=== PATIENT | male | born 1945 | race Caucasian/White ===

== ENCOUNTER 2021-04-10 12:50 | Emergency (ER) | payer MEDICARE ==
[2021-04-10] MEDS ORDERED: KETOROLAC 15 MG/ML 1 ML VIAL IVP STA (13:12)
[2021-04-10] MEDS ORDERED: SODIUM CHLORIDE 0.9% 500 ML 500 ML IV STA (13:12)
--- NOTE | 2021-04-10 13:23 | ED ---
General Adult HPI - General Chief complaint: Back Pain/Injury Stated complaint: back/knee pain Source: patient, family (spouse) Mode of arrival: ambulatory Limitations: no limitations - History of Present Illness Initial comments: 76-year-old alert and oriented white male, presents to the emergency room with complaints of left shoulder pain that radiates across his upper back for the past 5 days. He states he's been taking Tylenol with no relief. Today he developed right knee pain with difficulty flexing it. He denies any injuries. 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 There is some swelling that he noted today. Patient denies any fevers, cough or chest pain. He does have a history of coronary artery disease and COPD. He has been on a paleo diet for the past 5 weeks and lost 20 pounds intentionally. The main reason for visit today is upper back pain is worse with palpation or movement and the right knee pain also worse with palpation or flexion. -: days(s) (5) Location: back (Thoracic), left, right (Knee), upper extremity (left Shoulder), lower extremity Radiation: back (Thoracic back) Severity scale (1-10): 6 Consistency: constant Improves with: immobilization, other (Sitting upright) Worsens with: movement (Lying flat) Associated Symptoms: other (Upper back pain with deep breaths) Treatments Prior to Arrival: none (Acetaminophen) - Related Data Previous Rx's Medication Instructions Recorded Ibuprofen [Motrin] 600 mg PO Q8HR PRN #30 tab 04/10/21 Allergies Allergy/AdvReac Type Severity Reaction Status Date / Time No Known Allergies Allergy Verified 04/10/21 12:57 Review of Systems ROS Statement: Those systems with pertinent positive or pertinent negative responses have been documented in the HPI. ROS Other: All systems not noted in ROS Statement are negative. Past Medical History Past Medical History: Asthma, Coronary Artery Disease (CAD), COPD, Hypertension Additional Past Medical History / Comment(s): PVC's, COVID 08/15 History of Any Multi-Drug Resistant Organisms: None Reported Past Surgical History: Hernia Repair, Orthopedic Surgery, Tonsillectomy Additional Past Surgical History / Comment(s): lt knee, pyloric stenosis, vasectomy Past Psychological History: No Psychological Hx Reported Smoking Status: Former smoker Past Alcohol Use History: Rare Past Drug Use History: None Reported General Exam Limitations: no limitations General appearance: alert, in no apparent distress Head exam: Present: atraumatic, normocephalic, normal inspection Eye exam: Present: normal appearance, PERRL, EOMI. Absent: scleral icterus, conjunctival injection, periorbital swelling Pupils: Present: normal accommodation ENT exam: Present: normal exam, normal oropharynx, mucous membranes moist Neck exam: Present: normal inspection, full ROM. Absent: tenderness, meningismus, lymphadenopathy, thyromegaly Respiratory exam: Present: normal lung sounds bilaterally. Absent: respiratory distress, wheezes, rales, rhonchi, stridor, chest wall tenderness, accessory muscle use, decreased breath sounds, prolonged expiratory Cardiovascular Exam: Present: regular rate, normal rhythm, normal heart sounds. Absent: systolic murmur, diastolic murmur, rubs, gallop, clicks GI/Abdominal exam: Present: soft, normal bowel sounds. Absent: distended, tenderness, guarding, rebound, rigid Extremities exam: Present: joint swelling (Right knee) Left Shoulder Exam: Present: tenderness (Left scapula to palpation). Absent: laceration, ecchymosis, deformity, crepitus, dislocation, erythema, tenderness over AC joint Upper Arm exam: Present: normal inspection. Absent: tenderness Elbow exam: Present: normal inspection. Absent: tenderness Forearm Wrist exam: Present: normal inspection. Absent: tenderness Hand Wrist exam: Present: normal inspection. Absent: tenderness Vascular: Present: normal capillary refill. Absent: vascular compromise Right Knee exam: Present: tenderness, swelling, pain/laxity with valgus, pain/laxity with varus, full knee extension. Absent: full ROM, abrasion, laceration, ecchymosis, deformity, dislocation, erythema Lower Leg exam: Present: normal inspection Ankle exam: Present: normal inspection Neurovascular tendon exam: Present: no vascular compromise. Absent: abnormal cap refill, extremity cold to touch, pallor, foot drop Back exam: Present: normal inspection, paraspinal tenderness (Upper thoracic). Absent: CVA tenderness (R), CVA tenderness (L), vertebral tenderness, rash noted Expanded Back exam: Absent: saddle anesthesia Neurological exam: Present: alert, oriented X3, CN II-XII intact Psychiatric exam: Present: normal affect, normal mood Skin exam: Present: warm, dry, intact, normal color. Absent: rash Course Vital Signs 04/10/21 04/10/21 12:51 15:20 Temperature 98.3 F 98.1 F Pulse Rate 87 69 Respiratory 20 16 Rate Blood Pressure 161/88 136/88 O2 Sat by Pulse 99 96 Oximetry EKG Findings - EKG Results: EKG: sinus rhythm (Ventricular rate 71, ND interval 0.186, QRS of 0.90, QTC of 0.402) Medical Decision Making - Medical Decision Making Chest x-ray shows no hilar masses, heart size is normal, no pleural effusions and no compression fractures. X-ray of the right knee shows mild chondr ocalcinosis but no fractures. There is no evidence of any significant joint effusion. CBC is unremarkable with no elevation in white count to indicate infectious process. Electrolytes are within normal limits. EKG shows normal sinus rhythm with no ectopy. I have a low suspicion that this is ACS. Patient has no shortness of breath or cough. Blood glucose is 130 and patient was advised to follow up with his doctor. This is likely arthritic pain as evidenced by chondrocalcinosis of the knee and x-ray. He'll be referred to orthopedics. Case discussed with Dr. Fregoso who is agreeable to this plan of care - Lab Data Result diagrams: 04/10/21 13:23 04/10/21 13:23 Lab Results 04/10/21 04/10/21 04/10/21 Range/Units 13:23 13:23 13:23 WBC 9.6 (3.8-10.6) k/uL RBC 4.33 (4.30-5.90) m/uL Hgb 14.1 (13.0-17.5) gm/dL Hct 41.5 (39.0-53.0) % MCV 95.7 (80.0-100.0) fL MCH 32.5 (25.0-35.0) pg MCHC 33.9 (31.0-37.0) g/dL RDW 13.7 (11.5-15.5) % Plt Count 289 (150-450) k/uL MPV 8.6 Neutrophils % 75 % Lymphocytes % 11 % Monocytes % 10 % Eosinophils % 1 % Basophils % 1 % Neutrophils # 7.2 (1.3-7.7) k/uL Lymphocytes # 1.1 (1.0-4.8) k/uL Monocytes # 0.9 (0-1.0) k/uL Eosinophils # 0.1 (0-0.7) k/uL Basophils # 0.1 (0-0.2) k/uL Sodium 138 (137-145) mmol/L Potassium 4.4 (3.5-5.1) mmol/L Chloride 105 (98-107) mmol/L Carbon Dioxide 25 (22-30) mmol/L Anion Gap 8 mmol/L BUN 22 H (9-20) mg/dL Creatinine 0.68 (0.66-1.25) mg/dL Est GFR (CKD-EPI)AfAm >90 (>60 ml/min/1.73 sqM) Est GFR (CKD-EPI)NonAf >90 (>60 ml/min/1.73 sqM) Glucose 130 H (74-99) mg/dL Plasma Lactic Acid Brad 0.9 (0.7-2.0) mmol/L Calcium 9.6 (8.4-10.2) mg/dL Total Bilirubin 0.5 (0.2-1.3) mg/dL AST 28 (17-59) U/L ALT 27 (4-49) U/L Alkaline Phosphatase 67 (38-126) U/L Total Protein 6.9 (6.3-8.2) g/dL Albumin 4.2 (3.5-5.0) g/dL Lipase 57 (23-300) U/L Disposition Clinical Impression: Chondrocalcinosis Disposition: HOME SELF-CARE Condition: Fair Instructions (If sedation given, give patient instructions): Knee Pain (ED), Shoulder Pain (ED) Additional Instructions: Take Motrin every 8 hours for pain, rest ice and elevate your knee. Follow-up with orthopedics for continuation of care. Return with worsening symptoms. Prescriptions: Ibuprofen [Motrin] 600 mg PO Q8HR PRN #30 tab PRN Reason: Pain Is patient prescribed a controlled substance at d/c from ED?: No Referrals: Saurabh Wheeler MD [Primary Care Provider] - 1-2 days Vidal Dacosta PAC [PHYSICIAN [employer]GER] - 1-2 days
[2021-04-10 13:40] LABS: Basophils # (A) 0.1 k/uL (0-0.2); Basophils % (A) 1 %; Eosinophils # (A) 0.1 k/uL (0-0.7); Eosinophils % (A) 1 %; HCT 41.5 % (39.0-53.0); HGB 14.1 gm/dL (13.0-17.5); Lymphocytes # (A) 1.1 k/uL (1.0-4.8); Lymphocytes % (A) 11 %; MCH 32.5 pg (25.0-35.0); MCHC 33.9 g/dL (31.0-37.0); MCV 95.7 fL (80.0-100.0); Mean Platelet Volume 8.6; Monocytes # (A) 0.9 k/uL (0-1.0); Monocytes % (A) 10 %; Neutrophils # (A) 7.2 k/uL (1.3-7.7); Neutrophils % (A) 75 %; Platelet Count 289 k/uL (150-450); RBC 4.33 m/uL (4.30-5.90); RDW 13.7 % (11.5-15.5); WBC 9.6 k/uL (3.8-10.6)
[2021-04-10 13:55] LABS: ALT 27 U/L (4-49); AST 28 U/L (17-59); African American GFR (CKD) >90 (>60 ml/min/1.73 sqM); Albumin 4.2 g/dL (3.5-5.0); Alkaline Phosphatase 67 U/L (38-126); Anion Gap 8 mmol/L; Blood Urea Nitrogen 22 mg/dL (9-20); Calcium 9.6 mg/dL (8.4-10.2); Carbon Dioxide 25 mmol/L (22-30); Chloride 105 mmol/L (98-107); Glucose 130 mg/dL (74-99); Lipase 57 U/L (23-300); Non-African American GFR(CKD) >90 (>60 ml/min/1.73 sqM); Sodium 138 mmol/L (137-145); Total Bilirubin 0.5 mg/dL (0.2-1.3); Total Protein 6.9 g/dL (6.3-8.2)
[2021-04-10 14:00] LABS: Potassium 4.4 mmol/L (3.5-5.1)
--- NOTE | 2021-04-10 14:15 | XR ---
EXAMINATION TYPE: XR chest 2V DATE OF EXAM: 04/10/2021 COMPARISON: NONE HISTORY: Back pain TECHNIQUE: 3 views FINDINGS: There is no heart failure nor confluent pneumonic infiltrate. There is some linear density in the posterior lower lung dill.. There are no hilar masses. Heart size is normal. There is no ple ural effusion. Bony thorax is intact. There is some degenerative mild spurring in the thoracic spine. No compression fracture. IMPRESSION: Scarring or subsegmental atelectasis at the lung bases. Normal heart.
--- NOTE | 2021-04-10 14:17 | XR ---
EXAMINATION TYPE: XR knee complete RT DATE OF EXAM: 04/10/2021 COMPARISON: NONE HISTORY: Pain TECHNIQUE: 3 views FINDINGS: There is no fracture nor dislocation. There is some calcification of the menisci. There is no evidence of any significant joint effusion. Joint spaces are fairly normal. IMPRESSION: Mild chondrocalcinosis. No fracture.
[2021-04-10 15:27] VITALS: BP 136/88; PULSE 69; RESP 16; TEMP 98.1
== END 2021-04-10 15:20 | disposition home or self-care (01) ==
LOC: EC 12:50
DX: M11.261 Other chondrocalcinosis, right knee (principal); M25.512 Pain in left shoulder; M54.6 Pain in thoracic spine; I10 Essential (primary) hypertension; I25.10 Atherosclerotic heart disease of native coronary artery without angina pectoris; J44.9 Chronic obstructive pulmonary disease, unspecified; Z87.891 Personal history of nicotine dependence; Z86.16 Personal history of COVID-19
CPT/HCPCS: 93005; 80053; 83605; 83690; 85025; 73562; 71046; 99284; 96374; 96361; J1885